=== PATIENT | female | born 1950 | race Caucasian/White ===

== ENCOUNTER 2021-04-13 04:41 | Emergency (ER) | payer MEDICARE, OTHER ==
[~2021-04-13] VITALS: Ht 157.5 cm; Wt 92.2 kg
--- NOTE | 2021-04-13 04:52 | PHYS DOC ---
Past History Past Medical History: Diabetes (ARLETTE DRUMMOND MD) Past Surgical History: Cholecystectomy (ARLETTE DRUMMOND MD) Smoking: Non-smoker Alcohol Use: None Drug Use: None (ARLETTE DRUMMOND MD) Adult General HPI HPI Patient is a 70-year-old female with a past medical history significant for insulin-dependent diabetes, hypertension and hyperlipidemia who presents to the emergency department with a chief complaint of 2 episodes of bilateral lower extremity weakness, slurred speech and difficulty moving her right arm. States she woke up about 2 hours ago, went to the restroom and on the way back began to feel weak in her legs bilaterally and had to sit on the ground. States she did not fall but sat. States she was weak but was able to sit on the stool and call her son. States at that time she felt as if she was having some slurred speech. States that when her son arrived her symptoms had resolved but called the ambulance anyway to be checked out. States that she had another episode that lasted a few minutes where she had slurred speech and difficulty raising her right arm. States that this resolved in the ambulance and has not had another episode since. Denies recent travels, traumas, illnesses, fevers, chest pain, shortness of breath, abdominal pain, nausea, vomiting, diarrhea. Denies any known ill contacts. States that she did not take any of her mom blood pressure medications or her insulin yesterday. (ARLETTE DRUMMOND MD) Review of Systems Review of Systems Review of systems otherwise unremarkable except noted in HPI (ARLETTE DRUMMOND MD) Allergies Allergies Allergies Coded Allergies Type Severity Reaction Last Updated Verified No Known Drug Allergies 07/07/13 No (ARLETTE DRUMMOND MD) Physical Exam Physical Exam Constitutional: Well developed, well nourished, no acute distress, non-toxic appearance. [] HENT: Normocephalic, atraumatic, bilateral external ears normal, oropharynx moist, no oral exudates, nose normal. [] Eyes: PERRLA, EOMI, conjunctiva normal, no discharge. [] Neck: Normal range of motion, no tenderness, supple, no stridor. [] Cardiovascular:Heart rate regular rhythm, no murmur [] Lungs & Thorax: Bilateral breath sounds clear to auscultation [] Abdomen: soft, no tenderness, no masses, no pulsatile masses. [] Skin: Warm, dry, no erythema, no rash. [] Back: No tenderness, no CVA tenderness. [] Extremities: No tenderness, no cyanosis, no clubbing, ROM intact, no edema. [] Neurologic: Alert and oriented X 3, normal motor function, normal sensory function, able to sit, stand and walk without issue, cranial nerves intact, no focal deficits noted, NIH of 0. [] Psychologic: Affect normal, judgement normal, mood normal. [] (ARLETTE DRUMMOND MD) Current Patient Data Lab Results Laboratory Tests Test 04/13/21 04:45 Glucose (Fingerstick) 239 mg/dL (70-99) H (ARLETTE DRUMMOND MD) EKG EKG [] (ARLETTE DRUMMOND MD) Radiology/Procedures Radiology/Procedures [] (ARLETTE DRUMMOND MD) Heart Score C/O Chest Pain: No Risk Factors: Risk Factors: DM, Current or recent (<one month) smoker, HTN, HLP, family history of CAD, obesity. Risk Scores: Risk Factors: DM, Current or recent (<one month) smoker, HTN, HLP, family history of CAD, obesity. (ARLETTE DRUMMOND MD) Course & Med Decision Making Course & Med Decision Making Patient is a 70-year-old female who presents with a chief complaint of 2 short episodes lasting a couple minutes of slurred speech, and bilateral lower extremity weakness and trouble lifting her right arm which resolved before coming to the emergency department Vital signs notable for hypertension with blood pressure 216/89. Blood sugar greater than 200. On arrival patient with no focal neurologic deficits. EKG with a rate of 96, QRS of 86, QTc of 468, no STEMI. Placed on the monitor with IV access established. NIH of 0. Initial CT head negative. Given patient's description, and history of what appears to be uncontrolled hypertension there is concern for TIA versus hypertensive emergency given patient's severe hypertension and given the fact that she has not taken her hypertensive medications or insulin in 2 days. Patient started on Cardene for hypertensive emergency. Patient most likely to be admitted to the hospital for TIA work-up and hypertensive emergency. Rest the patient's evaluation, treatment and disposition handed off to day team. Resumed care of patient on transfer from day shift. Patient awake alert and oriented in no acute distress. With no new focal neurologic deficits. Still on Cardene drip for hypertensive urgency but blood pressure better controlled. Given home blood pressure medicines. Covid positive. Chest x-ray not concerning. Laboratory analysis not concerning. [place] patient need to be admitted to the hospital for continued evaluation and treatment of her hypertensive emergency and TIA versus hypertensive encephalopathy and Covid. Patient grateful, verbalized understanding agree with plan of transfer admission to [facility] for continued evaluation and treatment. [] (ARLETTE DRUMMOND MD) Course & Med Decision Making I assumed care of patient after comprehensive signout from off going physician. I reviewed entirety of ER work-up and personally saw patient repeating aspects of history and physical exam. Patient pending hospital transfer Patient's home hypertensive restarted, remained on Cardene drip Updated patient of COVID-19 positive status No other noteworthy events during my shift, signout given to PM physician who initially saw and worked up patient yesterday evening. Please defer to Dr. Drummond's documentation regarding future care of patient pending hospital transfer (JIAN RIVERA DO) Dragon Disclaimer Dragon Disclaimer This electronic medical record was generated, in whole or in part, using a voice recognition dictation system. (ARLETTE DRUMMOND MD) Departure Departure: Impression: Primary Impression: Weakness Additional Impressions: Slurred speech Hemiparesis Hypertensive emergency Disposition: 02 SHORT TERM HOSPITAL Condition: STABLE Referrals: PCP,UNKNOWN (PCP) Problem Qualifiers ARLETTE DRUMMOND MD Apr 13, 2021 04:52 JIAN RIVERA DO Apr 18, 2021 06:36
--- NOTE | 2021-04-13 05:01 | RAD ---
PQRS Compliance Statement: One or more of the following individualized dose reduction techniques were utilized for this examinat ion: 1. Automated exposure control 2. Adjustment of the mA and/or kV according to patient size 3. Use of iterative reconstruction technique CT HEAD WITHOUT CONTRAST History: Reason: Code Stroke, slurred speech / Spl. Instructions: / History: Comparison: None. Technique: Axial images are obtained of the head from the skull base through the vertex without IV co ntrast. Findings: No mass-effect, midline shift, extra-axial fluid collection, hemorrhage, or obvious acute infarction is identified. Basilar cisterns are patent. The sulci are prominent, consistent with generalized cerebral atrophy. Bone windows demonstrate no acute calvarial abnormality. There is mild mucosal thickening of the bilateral maxillary and ethmoid sinuses. There is no air-flui d level. Mastoid air cells are well aerated. IMPRESSION: 1. No acute intracranial abnormality. 2. Mild generalized cerebral atrophy. FOR INTERNAL CODING PURPOSES Critical result: Findings discussed with ARLETTE DRUMMOND MD at 04/13/2021 4:55 AM. RESULT CODE: (C) 1. Electronically signed by: Samy Espinoza MD (04/13/2021 4:58 AM) [facility]
[2021-04-13 05:15] LABS: BASO # 0.1 x10^3/uL (0.0-0.2); BASO % 0 % (0-3); EOS # 0.3 x10^3/uL (0.0-0.7); EOS % 2 % (0-3); HEMATOCRIT 39.9 % (36.0-47.0); HEMOGLOBIN 13.4 g/dL (12.0-15.5); LYMPH # 2.4 x10^3/uL (1.0-4.8); LYMPH % 18 % (24-48); MEAN CORPUSCULAR HEMOGLOBIN 33 pg (25-35); MEAN CORPUSCULAR HGB CONC 34 g/dL (31-37); MEAN CORPUSCULAR VOLUME 97 fL (79-100); MONO # 0.9 x10^3/uL (0.0-1.1); MONO % 7 % (0-9); NEUT # 9.2 x10^3uL (1.8-7.7); NEUT % 72 % (31-73); PLATELET COUNT 201 x10^3/uL (140-400); RED BLOOD COUNT 4.12 x10^6/uL (3.50-5.40); RED CELL DISTRIBUTION WIDTH 12.8 % (11.5-14.5); WHITE BLOOD COUNT 12.8 x10^3/uL (4.0-11.0)
[2021-04-13 05:25] LABS: CALCIUM 8.8 mg/dL (8.5-10.1); CREATININE 0.9 mg/dL (0.6-1.0); GFR 61.7; POTASSIUM 3.8 mmol/L (3.5-5.1)
[2021-04-13 05:39] LABS: ALBUMIN 3.3 g/dL (3.4-5.0); ALBUMIN/GLOBULIN RATIO 0.7 (1.0-1.7); MAGNESIUM 1.9 mg/dL (1.8-2.4); TOTAL BILIRUBIN 0.5 mg/dL (0.2-1.0)
[2021-04-13] MEDS ORDERED: CONTRAST GIVEN. MC PRN (05:45)
[2021-04-13] MEDS ORDERED: IOHEXOL 350 MG/ML 100 ML VIAL. IV ONE (06:00)
--- NOTE | 2021-04-13 06:18 | RAD ---
PQRS Compliance Statement: One or more of the following individualized dose reduction techniques were utilized for this examinat ion: 1. Automated exposure control 2. Adjustment of the mA and/or kV according to patient size 3. Use of iterative reconstruction technique CTA HEAD AND NECK W/WO CONTRAST Clinical Indication: Reason: stroke workup, slurred speech Comparison: CT head without contrast, earlier same day. Technique: Helical CT imaging from inferior to the aortic arch to the skull vertex is performed after 75 cc of Omnipaque [address] angiogram protocol. 3-D MIP reconstructions of the cervi angely carotid arteries and [place] of [place] are performed. PQRS Compliance Statement - Stenosis calculations for CT, MR and conventional angiography are based u nadeen measurement of the distal ICA diameter in accordance with the NASCET methodology. Stenosis calcu lations for carotid ultrasound studies are derived from validated velocity criteria which are known t o correlate with the NASCET methodology. Findings: Aortic arch branches are patent. Common origin of the innominate artery and the left common carotid a rtery, normal variant. The right common carotid arteries patent. There is mild narrowing of the mid l eft common carotid artery, image 602 of series 7. The narrowing is less than 50%. The carotid bifurca tions are patent. The cervical internal carotid arteries are patent. The cervical vertebral arteries are patent but small caliber. The artery is patent. There is persistent origin of the bilateral posterior cerebral arteries. Posterior cerebral arteries are patent. The distal internal carotid art eries are patent. The anterior circulation is intact. No intracranial aneurysm is identified. The dural venous sinuses are unremarkable. No abnormal enhancement in the brain parenchyma is identif ied. Mucosal thickening inferiorly in the right maxillary sinus. Bilateral subcentimeter submandibula r lymph nodes are noted. The thyroid is symmetric. The upper lungs are clear. Cervical spine alignmen t is maintained. IMPRESSION: 1. No large vessel occlusion. 2. No significant stenosis of the cervical carotid or vertebral arteries. Electronically signed by: Samy Espinoza MD (04/13/2021 6:16 AM) [facility]
[2021-04-13] MEDS ORDERED: IV NORMAL SALINE 250ML 250 ML ONE (06:23)
--- NOTE | 2021-04-13 06:23 | RAD ---
XR CHEST 1V Clinical Indication: Reason: cardiac w/u, short of air, slurred speech / Spl. Instructions: / Histor y: Comparison: None. Findings: Atherosclerotic thoracic aorta. The cardiac size is normal. Lungs are clear. There is no pneumothorax . No pleural effusion is appreciated. No acute bone abnormality. IMPRESSION: No acute cardiopulmonary process. Electronically signed by: Samy Espinoza MD (04/13/2021 6:21 AM) [facility]
[2021-04-13] MEDS ORDERED: niCARdipine INJ. IV ONE (06:24)
[2021-04-13 07:34] LABS: BACTERIA,URINE 0 /HPF (0-FEW); BILIRUBIN,URINE NEG (NEG); CLARITY,URINE CLEAR; COLOR,URINE YELLOW; GLUCOSE,URINE 100 mg/dL (NEG); NITRITE,URINE NEG (NEG); RBC,URINE 0 /HPF (0-2); SQUAMOUS EPITHELIAL CELL,UR FEW /LPF; UROBILINOGEN,URINE 0.2 mg/dL (0.2 mg/dL); WBC,URINE OCC /HPF (0-4)
[2021-04-13 08:52] LABS: INFLUENZA A PATIENT NEGATIVE (NEGATIVE); INFLUENZA B PATIENT NEGATIVE (NEGATIVE)
[2021-04-13] MEDS ORDERED: hydroCHLOROthiazide 25 MG TABLET. PO ONE (13:00)
[2021-04-13] MEDS ORDERED: LOSARTAN 50 MG TABLET. PO SCH (13:30)
--- NOTE | 2021-04-13 19:18 | EKG ---
[address] [address] Test Date: 2021-04-13 Test Time: 04:59:47 Pat Name: MYNOR JERNIGAN Department: Room: Gender: F Healthcare Analyst: ANSHUL : 1950 Requested By: ARLETTE DRUMMOND Order Number: [id number] Reading MD: Josafat Kirk Measurements Intervals [place] Rate: 96 P: 66 VT: 132 QRS: 29 QRSD: 86 T: 24 QT: 370 QTc: 468 Interpretive Statements SINUS RHYTHM Electronically Signed On 04-14-2021 13:05:00 DEMOLITIONIST by Josafat Kirk
[2021-04-13] MEDS ORDERED: hydroCHLOROthiazide 25 MG TABLET. ONE (21:40)
[2021-04-13 22:38] VITALS: BP 147/87
[2021-04-13] MEDS ORDERED: ENOXAPARIN 40 MG/0.4 ML SYRINGE. SQ ONE (23:00)
== END 2021-04-13 23:45 | disposition short-term general hospital (02) ==
LOC: ER 04:41
DX: U07.1 COVID-19 (principal); I16.1 Hypertensive emergency; R53.1 Weakness; R47.81 Slurred speech; G81.90 Hemiplegia, unspecified affecting unspecified side; E11.9 Type 2 diabetes mellitus without complications; E78.5 Hyperlipidemia, unspecified
CPT/HCPCS: 36415; 70450; 70496; 70498; 71045; 80053; 81001; 82947; 83735; 84484; 85025; 85610; 85730; 87428; 93005; 96365; 96366; 99285; J7050; Q9967